=== PATIENT | female | born 1980 | race Caucasian/White ===

== ENCOUNTER 2019-12-07 19:02 | Emergency (ER) | payer OTHER ==
[~2019-12-07] VITALS: Ht 167.6 cm; Wt 136.1 kg
[2019-12-07 19:32] VITALS: BP 142/75
--- NOTE | 2019-12-07 19:38 | NUR ---
39 Y/O FEMALE BIBA BLS C/O LRQ ABD PAIN X 2 DAYS THAT IS NON RADIATING/; PAIN IS 9/10 AND FEELS BURNING/STABBING; PT TOOK NORCO 3 HRS AGO WITH NO RELIEF; DENIES N/V/D; SKIN IS PINK/WARM/DRY; AAOX4 WITH EVEN AND STEADY GAIT; HR EVEN AND REGULAR; PT DENIES ANY FEVER, CP, SOB, OR COUGH AT THIS TIME; VSS; PATIENT POSITIONED FOR COMFORT; HOB ELEVATED; BEDRAILS UP X2; BED DOWN AND LOCKED PMH: ASTHMA/HTN/PANCREATITS/GALLBLADDER REMOVED/SCIATIC PAIN/NERVE DAMAGE RIGHT LEG/SLIPPED DISC X 4 ALLERGY: PCN/BACTRIM
[2019-12-07] MEDS ORDERED: NACL 0.9% 1,000 ML IV SCH (20:08)
[2019-12-07] MEDS ORDERED: MORPHINE SULFATE 4 MG/ML SYR IVP ONE (20:10)
[2019-12-07] MEDS ORDERED: ONDANSETRON 4 MG/2 ML VIAL IVP ONE (20:10)
[2019-12-07 20:38] LABS: APPEARANCE,URINE CLEAR (CLEAR); BILIRUBIN,URINE NEGATIVE (NEGATIVE); BLOOD, URINE NEGATIVE (NEGATIVE); COLOR,URINE YELLOW (YELLOW); LEUKOCYTE ESTERASE ,URINE 1+ (NEGATIVE); NITRITE, URINE NEGATIVE (NEGATIVE); UGLUCOSE NEGATIVE (NEGATIVE)
[2019-12-07 20:43] LABS: BASOPHILS # (AUTO) 0.1 K/uL (0.00-0.22); EOSINOPHILS # (AUTO) 0.3 K/uL (0-0.4); EOSINOPHILS % (AUTO) 5.3 % (0.0-4.0); HEMATOCRIT 27.3 % (36-48); HEMOGLOBIN 8.3 g/dL (12.0-16.0); LYMPHOCYTES # (AUTO) 1.7 K/uL (2.5-16.5); MEAN CORPUSCULAR HEMOGLOBIN 20 pg (27-31); MEAN CORPUSCULAR HGB CONC 30 g/dL (33-37); MONOCYTES # (AUTO) 0.3 K/uL (0.8-1.0); MONOCYTES % (AUTO) 4.4 % (1.7-9.3); NEUTROPHILS % (AUTO) 62.3 % (42.2-75.2); PLATELET COUNT (AUTO) 291 K/uL (140-450); RED BLOOD CELL COUNT(AUTO) 4.27 MIL/uL (4.20-5.40); RED CELL DISTRIBUTION WIDTH 18.9 % (11.6-13.7); WHITE BLOOD COUNT (AUTO) 6.4 K/uL (4.8-10.8)
[2019-12-07 20:53] LABS: CARBON DIOXIDE 27.8 mmol/L (21-32); CREATININE 0.8 mg/dL (0.6-1.3); POTASSIUM 3.8 mmol/L (3.5-5.1); TOTAL BILIRUBIN 0.3 mg/dL (0.0-1.0)
[2019-12-07 21:14] LABS: RBC,URINE 0-5 /HPF (0-5)
--- NOTE | 2019-12-07 21:18 | NUR ---
PT RETURNED FROM CT
[2019-12-07 22:30] VITALS: BP 142/75
--- NOTE | 2019-12-07 22:30 | NUR ---
Patient discharged with v/s stable. Written and verbal after care instructions given and explained. Patient alert, oriented and verbalized understanding of instructions. Ambulatory with steady gait. All questions addressed prior to discharge. ID band removed. Patient advised to follow up with PMD. Rx of CIPRO/NORCO/MOTRIN/ZOFRAN given. Patient educated on indication of medication including possible reaction and side effects. Opportunity to ask questions provided and answered.
== END 2019-12-07 22:30 | disposition home or self-care (01) ==
LOC: MED 19:02
DX: N39.0 Urinary tract infection, site not specified (principal); K42.9 Umbilical hernia without obstruction or gangrene; J45.909 Unspecified asthma, uncomplicated; I10 Essential (primary) hypertension; Z90.49 Acquired absence of other specified parts of digestive tract; Z88.0 Allergy status to penicillin; Z88.1 Allergy status to other antibiotic agents; Z88.2 Allergy status to sulfonamides
CPT/HCPCS: 36415; 74176; 80053; 81001; 81025; 83690; 85025; 87086; 96361; 96374; 96375; 99284; J2270; J2405; J7030

== ENCOUNTER 2020-07-10 13:01 | Emergency (ER) | payer OTHER ==
[~2020-07-10] VITALS: Ht 170.2 cm; Wt 140.6 kg
--- NOTE | 2020-07-10 13:05 | NUR ---
BIBA TAKEN TO BED 6
[2020-07-10 13:17] VITALS: BP 130/63
[2020-07-10] MEDS ORDERED: ONDANSETRON 4 MG ODT PO ONE (13:45)
[2020-07-10] MEDS ORDERED: MORPHINE SULFATE 5 MG/ML VIAL IM ONE (13:45)
--- NOTE | 2020-07-10 13:50 | NUR ---
39 Y/O FEMALE BIBA FROM HOME FOR BACK PAIN/DIFFICULTY BREATHING X 4 DAYS. PT STATES SHE WAS DIAGNOSED WITH PNA AND STREP THROAT 4 DAYS AGO. BREATHING APPEARS LABORED, SPO2 99% RA, SYMMETRICAL CHEST EXPANSION, CLEAR LUNG SOUNDS THROUGHOUT. PT STATES PAIN UPON INSPIRATION. PAIN FELT UPPER/MID BACK, 8/10, CONTINUOUS. PT DENIES COUGH BUT STATES PRESENCE OF GREEN/JOSE DAVID SPUTUM. AO4, SKIN WARM AND DRY. BED IN LOWEST POSITION, LOCKED, X1 SIDERAIL UP. PMH - CHOLECYSTECTOMY, PANCREATITIS, STOMACH CYST ALLERGY - BACTRIM, PENICILLIN
--- NOTE | 2020-07-10 13:57 | NUR ---
MARIS COVID SWAB OBTAINED AND GIVEN TO LAB
[2020-07-10 14:36] LABS: ALBUMIN 3.1 g/dL (3.4-5.0); CARBON DIOXIDE 27.1 mmol/L (21-32); CREATININE 0.7 mg/dL (0.6-1.3); POTASSIUM 4.1 mmol/L (3.5-5.1); TOTAL BILIRUBIN 0.4 mg/dL (0.0-1.0)
[2020-07-10 14:47] LABS: BASOPHILS % (AUTO) 0.4 % (0.0-2.0); EOSINOPHILS # (AUTO) 0.3 K/uL (0-0.4); EOSINOPHILS % (AUTO) 3.9 % (0.0-4.0); HEMATOCRIT 29.3 % (36-48); HEMOGLOBIN 8.9 g/dL (12.0-16.0); LYMPHOCYTES # (AUTO) 1.8 K/uL (2.5-16.5); LYMPHOCYTES % (AUTO) 19.9 % (20.5-51.1); MEAN CORPUSCULAR HEMOGLOBIN 19 pg (27-31); MEAN CORPUSCULAR HGB CONC 31 g/dL (33-37); MEAN CORPUSCULAR VOLUME 61.5 fL (80-94); MONOCYTES # (AUTO) 0.3 K/uL (0.8-1.0); MONOCYTES % (AUTO) 3.8 % (1.7-9.3); NEUTROPHILS # (AUTO) 6.4 K/uL (1.8-7.7); PLATELET COUNT (AUTO) 321 K/uL (140-450); RED BLOOD CELL COUNT(AUTO) 4.76 MIL/uL (4.20-5.40); RED CELL DISTRIBUTION WIDTH 19.1 % (11.6-13.7); WHITE BLOOD COUNT (AUTO) 8.9 K/uL (4.8-10.8)
--- NOTE | 2020-07-10 15:03 | NUR ---
PT VERBALIZED DESIRE TO OPT OF CT ANGIO OF CHEST DUE TO MULTIPLE CT SCANS WITHIN THE LAST 5 MONTHS. SAID INFORMED AND STATES OKAT TO D/C CT ANGIO OF CHEST.
[2020-07-10] MEDS ORDERED: IBUP-2213 PO (15:17)
[2020-07-10 15:27] VITALS: BP 130/63
--- NOTE | 2020-07-10 15:27 | NUR ---
Patient discharged with v/s stable. Written and verbal after care instructions ABOUT CHEST WALL PAIN given and explained. Patient alert, oriented and verbalized understanding of instructions. Ambulatory with steady gait. All questions addressed prior to discharge. ID band removed. Patient advised to follow up with PMD. Rx of ACETAMINOPHEN given. Patient educated on indication of medication including possible reaction and side effects. Opportunity to ask questions provided and answered.
== END 2020-07-10 15:27 | disposition home or self-care (01) ==
LOC: MED 13:01
DX: R07.9 Chest pain, unspecified (principal); R05 Cough; M54.9 Dorsalgia, unspecified; D64.9 Anemia, unspecified; Z20.822 Contact with and (suspected) exposure to COVID-19
CPT/HCPCS: 36415; 71045; 80053; 81025; 84484; 84702; 85025; 87426; 93005; 96372; 99285; J2270; Q0162

== ENCOUNTER 2020-11-16 02:21 | Emergency (ER) | payer OTHER ==
[~2020-11-16] VITALS: Ht 167.6 cm; Wt 142.9 kg
[~2020-11-16 02:21] MED LIST: IBUP-2213 PO
[2020-11-16 02:26] VITALS: BP 142/81
--- NOTE | 2020-11-16 02:33 | NUR ---
PATIENT TO BED 7 AMBULATORY
[2020-11-16] MEDS ORDERED: FURO-572 PO (03:45)
[2020-11-16 03:56] VITALS: BP 142/81
--- NOTE | 2020-11-16 03:56 | NUR ---
Patient discharged with v/s stable. Written and verbal after care instructions given and explained. Patient alert, oriented and verbalized understanding of instructions. Ambulatory with steady gait. All questions addressed prior to discharge. ID band removed. Patient advised to follow up with PMD. Rx of lasix given. Patient educated on indication of medication including possible reaction and side effects. Opportunity to ask questions provided and answered.
== END 2020-11-16 03:56 | disposition home or self-care (01) ==
LOC: MED 02:21
DX: R60.0 Localized edema (principal)
CPT/HCPCS: 93971; 99284

== ENCOUNTER 2020-12-23 05:48 | Emergency (ER) | payer OTHER, SELFPAY ==
[~2020-12-23] VITALS: Ht 170.2 cm; Wt 145.1 kg
[2020-12-23 05:48] VITALS: BP 173/74
[~2020-12-23 05:48] MED LIST changes: +FURO-572 PO
--- NOTE | 2020-12-23 06:30 | NUR ---
CASI FROM HOME 40 Y.O. C/O SOB. PATIENT HAS A RESPIRATORY INFECTION THAT WAS FOUND 9 DAYS AGO. PATIENT NEGATIVE OF COVID. HAS NAUSEA AND SOME VOMITING. DENIES FEVER. PER EMS 88% SATURATION INITIALLY AND GAVE DUO-NEB WITH 10L OF O2 AND PATIENT ON 96% O2 SATURATION. EKG NS. PATIENT HAS ALBUTEROL BUT DID NOT TAKE THE MEDICATION. PATIENT GCS 15. PMH: PANCREATITIS, ANXIETY, ASTHMA ALLERGIES: PENICILLINS AND BACTRIM
--- NOTE | 2020-12-23 07:00 | NUR ---
MAIL SUPERINTENDENT AT BEDSIDE
[2020-12-23] MEDS: KETOROLAC 30 MG/ML VIAL IVP ONE (07:05)
--- NOTE | 2020-12-23 07:05 | NUR ---
XRAY AT BEDSIDE
[2020-12-23 07:16] LABS: BASOPHILS % (AUTO) 0.4 % (0.0-2.0); EOSINOPHILS # (AUTO) 0.1 K/uL (0-0.4); EOSINOPHILS % (AUTO) 1.2 % (0.0-4.0); HEMATOCRIT 28.3 % (36-48); HEMOGLOBIN 8.6 g/dL (12.0-16.0); LYMPHOCYTES # (AUTO) 1.2 K/uL (2.5-16.5); LYMPHOCYTES % (AUTO) 18.8 % (20.5-51.1); MEAN CORPUSCULAR HEMOGLOBIN 20 pg (27-31); MEAN CORPUSCULAR HGB CONC 30 g/dL (33-37); MEAN CORPUSCULAR VOLUME 64.7 fL (80-94); MONOCYTES # (AUTO) 0.4 K/uL (0.8-1.0); MONOCYTES % (AUTO) 5.4 % (1.7-9.3); NEUTROPHILS # (AUTO) 4.9 K/uL (1.8-7.7); NEUTROPHILS % (AUTO) 74.2 % (42.2-75.2); PLATELET COUNT (AUTO) 289 K/uL (140-450); RED BLOOD CELL COUNT(AUTO) 4.38 MIL/uL (4.20-5.40); RED CELL DISTRIBUTION WIDTH 18.9 % (11.6-13.7); WHITE BLOOD COUNT (AUTO) 6.6 K/uL (4.8-10.8)
--- NOTE | 2020-12-23 07:19 | NUR ---
REPORT RECEIVED FROM LA TORRES. KENNETH OF CARE RECEIVED
--- NOTE | 2020-12-23 07:22 | NUR ---
GIVEN REPORT TO LA RODAS. TRANSFER OF CARE AT THIS TIME
[2020-12-23 07:25] LABS: ALBUMIN 2.7 g/dL (3.4-5.0); ANION GAP 12.8 (8-16); CARBON DIOXIDE 27.9 mmol/L (21-32); CREATININE 0.8 mg/dL (0.6-1.3); POTASSIUM 3.7 mmol/L (3.5-5.1); TOTAL BILIRUBIN 0.6 mg/dL (0.0-1.0)
--- NOTE | 2020-12-23 07:35 | NUR ---
navid murillo collected and walked over to lab
[2020-12-23] MEDS ORDERED: IBUP-2213 PO (08:01)
[2020-12-23] MEDS: ONDANSETRON 4 MG/2 ML VIAL IVP ONE (08:01)
[2020-12-23] MEDS ORDERED: ONDA8TAB87 PO (08:01)
[2020-12-23 08:23] VITALS: BP 136/71
--- NOTE | 2020-12-23 08:24 | NUR ---
Patient discharged with v/s stable. Written and verbal after care instructions given and explained. Patient alert, oriented and verbalized understanding of instructions. Ambulatory with steady gait. All questions addressed prior to discharge. ID band removed. Patient advised to follow up with PMD. Rx of zofran and ibuprofen given. Patient educated on indication of medication including possible reaction and side effects. Opportunity to ask questions provided and answered.
--- NOTE | 2020-12-25 14:46 | NUR ---
LATE ENTRY----LAB CALLED WITH + COVID RESULTS.
== END 2020-12-23 08:24 | disposition home or self-care (01) ==
LOC: MED 05:48
DX: U07.1 COVID-19 (principal); J45.909 Unspecified asthma, uncomplicated; I10 Essential (primary) hypertension; Z88.0 Allergy status to penicillin; Z88.2 Allergy status to sulfonamides; Z88.8 Allergy status to other drugs, medicaments and biological substances
CPT/HCPCS: 36415; 71045; 80053; 85025; 93005; 96374; 96375; 99285; J1885; J2405; U0003

== ENCOUNTER 2021-06-01 21:43 | Emergency (ER) | payer OTHER, SELFPAY ==
[~2021-06-01] VITALS: Ht 167.6 cm; Wt 154.2 kg
[~2021-06-01 21:43] MED LIST changes: +ONDA8TAB87 PO
--- NOTE | 2021-06-01 21:46 | NUR ---
PT TAKEN TO BED #4
[2021-06-01 21:47] VITALS: BP 136/74
--- NOTE | 2021-06-01 22:09 | NUR ---
DR. CARNEY AT BEDSIDE
--- NOTE | 2021-06-01 22:16 | NUR ---
PT AMBULATED TO BATHROOM .SHE STATES SHE FELT PRESSURE.
[2021-06-01] MEDS ORDERED: MAGNESIUM CITRATE 300 ML BTL PO ONE (22:30)
[2021-06-01] MEDS ORDERED: MAGN400S60 PO (22:42)
[2021-06-01 22:45] VITALS: BP 137/74
--- NOTE | 2021-06-01 22:45 | NUR ---
Patient discharged with v/s stable. Written and verbal after care instructions given and explained. Patient alert, oriented and verbalized understanding of instructions. Ambulatory with steady gait. All questions addressed prior to discharge. ID band removed. Patient advised to follow up with PMD. Rx of MILK OF MAGNESIA given. Opportunity to ask questions provided and answered.
--- NOTE | 2021-06-01 22:58 | NUR ---
The patient's care was reviewed and supervised by Nunu Crocker RN.
== END 2021-06-01 22:47 | disposition home or self-care (01) ==
LOC: MED 21:43
DX: K59.00 Constipation, unspecified (principal); K92.1 Melena; J45.909 Unspecified asthma, uncomplicated; I10 Essential (primary) hypertension; Z79.899 Other long term (current) drug therapy; Z88.0 Allergy status to penicillin; Z88.1 Allergy status to other antibiotic agents; Z88.2 Allergy status to sulfonamides
CPT/HCPCS: 99282

== ENCOUNTER 2022-01-17 01:34 | Emergency (ER) | payer OTHER ==
[~2022-01-17] VITALS: Ht 165.1 cm; Wt 163.3 kg
[~2022-01-17 01:34] MED LIST changes: +MAGN400S60 PO
[2022-01-17 01:41] VITALS: BP 171/117
[2022-01-17] MEDS ORDERED: MORPHINE SULFATE 2 MG/ML SYR IVP ONE (01:50)
[2022-01-17] MEDS ORDERED: ONDANSETRON 4 MG/2 ML VIAL IVP ONE (01:50)
[2022-01-17] MEDS ORDERED: NACL 0.9% 1,000 ML IV SCH (01:50)
--- NOTE | 2022-01-17 01:56 | NUR ---
PATIENT AMBULATED TO BED 5
--- NOTE | 2022-01-17 02:03 | NUR ---
LAB AT BEDSIDE
--- NOTE | 2022-01-17 02:04 | NUR ---
URINE COLLECTED AND HANDED TO LAB
[2022-01-17 02:09] LABS: APPEARANCE,URINE CLEAR (CLEAR); BILIRUBIN,URINE NEGATIVE (NEGATIVE); BLOOD, URINE NEGATIVE (NEGATIVE); COLOR,URINE YELLOW (YELLOW); LEUKOCYTE ESTERASE ,URINE 1+ (NEGATIVE); NITRITE, URINE NEGATIVE (NEGATIVE); UGLUCOSE NEGATIVE (NEGATIVE)
[2022-01-17 02:17] LABS: RBC,URINE 0-5 /HPF (0-5)
[2022-01-17 02:27] LABS: ANION GAP 15.5 (8-16); CARBON DIOXIDE 23.3 mmol/L (21-32); CREATININE 0.7 mg/dL (0.6-1.3); POTASSIUM 3.8 mmol/L (3.5-5.1); TOTAL BILIRUBIN 0.4 mg/dL (0.0-1.0)
[2022-01-17 02:50] LABS: BASOPHILS # (AUTO) 0.1 K/uL (0.00-0.22); BASOPHILS % (AUTO) 0.7 % (0.0-2.0); EOSINOPHILS # (AUTO) 0.5 K/uL (0-0.4); HEMATOCRIT 34.3 % (36-48); HEMOGLOBIN 10.7 g/dL (12.0-16.0); LYMPHOCYTES # (AUTO) 2.5 K/uL (2.5-16.5); LYMPHOCYTES % (AUTO) 26.7 % (20.5-51.1); MEAN CORPUSCULAR HEMOGLOBIN 22 pg (27-31); MEAN CORPUSCULAR HGB CONC 31 g/dL (33-37); MONOCYTES # (AUTO) 0.5 K/uL (0.8-1.0); NEUTROPHILS # (AUTO) 5.8 K/uL (1.8-7.7); NEUTROPHILS % (AUTO) 62.6 % (42.2-75.2); PLATELET COUNT (AUTO) 291 K/uL (140-450); RED CELL DISTRIBUTION WIDTH 18.9 % (11.6-13.7); WHITE BLOOD COUNT (AUTO) 9.3 K/uL (4.8-10.8)
[2022-01-17] MEDS ORDERED: KETOROLAC 30 MG/ML VIAL IVP ONE (04:30)
[2022-01-17] MEDS ORDERED: CEPH-588 PO (05:38)
[2022-01-17] MEDS ORDERED: cefTRIAXone 2,000 MG in DEXTROSE 5% 100 ML IV ONE (05:40)
[2022-01-17] MEDS ORDERED: cefTRIAXone 2,000 MG VIAL ONE (06:09)
--- NOTE | 2022-01-17 07:24 | NUR ---
Report recieved from [facility] for trasnfer of care.
[2022-01-17 07:56] VITALS: BP 121/59
--- NOTE | 2022-01-17 07:56 | NUR ---
Patient discharged with v/s stable. Written and verbal after care instructions given. Patient alert, oriented and verbalized understanding of instructions. Ambulatory with steady gait. All questions addressed prior to discharge. ID band removed. Patient advised to follow up with PMD. Rx of Keflex given. Opportunity to ask questions provided and answered.
== END 2022-01-17 07:56 | disposition home or self-care (01) ==
LOC: MED 01:34
DX: N39.0 Urinary tract infection, site not specified (principal); J45.909 Unspecified asthma, uncomplicated; I10 Essential (primary) hypertension; Z88.0 Allergy status to penicillin; Z88.2 Allergy status to sulfonamides; Z88.8 Allergy status to other drugs, medicaments and biological substances; Z79.899 Other long term (current) drug therapy
CPT/HCPCS: 36415; 74177; 80053; 81001; 84702; 85025; 87086; 96361; 96365; 96375; 99285; J0696; J1885; J2270; J2405; J7030; Q9967

== ENCOUNTER 2022-08-23 09:01 | Emergency (ER) | payer OTHER ==
[~2022-08-23] VITALS: Ht 167.6 cm; Wt 117.9 kg
[~2022-08-23 09:01] MED LIST changes: +CEPH-588 PO
[2022-08-23 09:14] VITALS: BP 152/94
--- NOTE | 2022-08-23 10:10 | NUR ---
DR ARITA AT BEDSIDE.
[2022-08-23] MEDS ORDERED: MORPHINE SULFATE 4 MG/ML SYR IVP ONE ×2 (10:15→11:35)
[2022-08-23] MEDS ORDERED: ONDANSETRON 4 MG/2 ML VIAL IVP ONE (10:15)
[2022-08-23] MEDS ORDERED: NACL 0.9% 1,000 ML IV SCH (10:15)
[2022-08-23 10:41] LABS: APPEARANCE,URINE CLEAR (CLEAR); BILIRUBIN,URINE NEGATIVE (NEGATIVE); BLOOD, URINE NEGATIVE (NEGATIVE); COLOR,URINE YELLOW (YELLOW); LEUKOCYTE ESTERASE ,URINE NEGATIVE (NEGATIVE); NITRITE, URINE NEGATIVE (NEGATIVE); UGLUCOSE NEGATIVE (NEGATIVE)
[2022-08-23 10:43] LABS: BASOPHILS # (AUTO) 0.1 K/uL (0.00-0.22); BASOPHILS % (AUTO) 1.2 % (0.0-2.0); EOSINOPHILS # (AUTO) 0.3 K/uL (0-0.4); EOSINOPHILS % (AUTO) 4.5 % (0.0-4.0); HEMATOCRIT 33.8 % (36-48); HEMOGLOBIN 10.8 g/dL (12.0-16.0); LYMPHOCYTES # (AUTO) 1.7 K/uL (2.5-16.5); LYMPHOCYTES % (AUTO) 24.8 % (20.5-51.1); MEAN CORPUSCULAR HEMOGLOBIN 23 pg (27-31); MEAN CORPUSCULAR HGB CONC 32 g/dL (33-37); MEAN CORPUSCULAR VOLUME 71.3 fL (80-94); MONOCYTES # (AUTO) 0.4 K/uL (0.8-1.0); NEUTROPHILS # (AUTO) 4.5 K/uL (1.8-7.7); NEUTROPHILS % (AUTO) 63.5 % (42.2-75.2); PLATELET COUNT (AUTO) 269 K/uL (140-450); RED BLOOD CELL COUNT(AUTO) 4.74 MIL/uL (4.20-5.40); RED CELL DISTRIBUTION WIDTH 16.7 % (11.6-13.7)
--- NOTE | 2022-08-23 10:50 | NUR ---
PATIENT TO CT
[2022-08-23 10:54] LABS: ALBUMIN 3.1 g/dL (3.4-5.0); ANION GAP 10.4 (8-16); CARBON DIOXIDE 29.9 mmol/L (21-32); CREATININE 0.8 mg/dL (0.6-1.3); POTASSIUM 4.3 mmol/L (3.5-5.1); TOTAL BILIRUBIN 0.4 mg/dL (0.0-1.0)
[2022-08-23] MEDS ORDERED: ACET-8905 PO (11:44)
[2022-08-23] MEDS ORDERED: ONDA8TAB87 PO (11:44)
[2022-08-23] MEDS ORDERED: IBUP-2213 PO (11:44)
[2022-08-23] MEDS ORDERED: OMEP40EC24 PO (11:44)
--- NOTE | 2022-08-23 11:59 | NUR ---
Patient discharged with v/s stable. Written and verbal after care instructions given and explained. Patient verbalized understanding. Ambulatory with steady gait. All questions addressed prior to discharge. Advised to follow up with PMD.
== END 2022-08-23 11:58 | disposition home or self-care (01) ==
LOC: MED 09:01
DX: R10.13 Epigastric pain (principal); R10.31 Right lower quadrant pain; R11.0 Nausea; J45.909 Unspecified asthma, uncomplicated; I10 Essential (primary) hypertension; Z90.49 Acquired absence of other specified parts of digestive tract; Z98.890 Other specified postprocedural states; Z79.899 Other long term (current) drug therapy; Z79.1 Long term (current) use of non-steroidal anti-inflammatories (NSAID); Z79.2 Long term (current) use of antibiotics; Z88.0 Allergy status to penicillin; Z88.1 Allergy status to other antibiotic agents; Z88.2 Allergy status to sulfonamides
CPT/HCPCS: 36415; 74176; 80053; 81003; 81025; 83690; 85025; 96361; 96374; 96375; 96376; 99285; J2270; J2405; J7030

== ENCOUNTER 2023-04-15 04:20 | Emergency (ER) | payer OTHER ==
[~2023-04-15] VITALS: Ht 165.1 cm; Wt 135.2 kg
[~2023-04-15 04:20] MED LIST changes: +ACET-8905 PO; +OMEP40EC24 PO
[2023-04-15 04:23] VITALS: BP 144/79; PULSE 80; RESP 18; TEMP 98; O2SAT 96
[2023-04-15 05:16] VITALS: BP 144/79; PULSE 75; RESP 17; TEMP 98; O2SAT 98
[2023-04-15] MEDS ORDERED: MORPHINE SULFATE 4 MG/ML SYR IM ONE (05:50)
[2023-04-15] MEDS ORDERED: ONDANSETRON 4 MG ODT PO ONE (05:50)
[2023-04-15 06:06] LABS: APPEARANCE,URINE CLEAR (CLEAR); BILIRUBIN,URINE 1+ (NEGATIVE); BLOOD, URINE NEGATIVE (NEGATIVE); COLOR,URINE YELLOW (YELLOW); LEUKOCYTE ESTERASE ,URINE TRACE (NEGATIVE); NITRITE, URINE NEGATIVE (NEGATIVE); PROTEIN,URINE NEGATIVE (NEGATIVE); UGLUCOSE NEGATIVE (NEGATIVE); UROBILINOGEN,URINE 0.2 EU/dL (0.2 - 1)
[2023-04-15 06:12] LABS: ICTOTEST NEGATIVE (NEGATIVE)
[2023-04-15 06:14] LABS: BACTERIA,URINE FEW /HPF (None Seen); RBC,URINE 0-5 /HPF (0-5); WBC,URINE 0-5 /HPF (0-5)
[2023-04-15 06:15] LABS: SQUAMOUS EPITHELIAL CELL,UR 4-10 (MOD) /LPF (0-3 (FEW))
[2023-04-15 06:27] LABS: BASOPHILS # (AUTO) 0.1 K/uL (0.00-0.22); BASOPHILS % (AUTO) 1.1 % (0.0-2.0); EOSINOPHILS # (AUTO) 0.3 K/uL (0-0.4); EOSINOPHILS % (AUTO) 3.9 % (0.0-4.0); HEMATOCRIT 35.5 % (36-48); HEMOGLOBIN 11.5 g/dL (12.0-16.0); LYMPHOCYTES # (AUTO) 1.7 K/uL (2.5-16.5); LYMPHOCYTES % (AUTO) 22.8 % (20.5-51.1); MEAN CORPUSCULAR HEMOGLOBIN 24 pg (27-31); MEAN CORPUSCULAR HGB CONC 32 g/dL (33-37); MEAN CORPUSCULAR VOLUME 74.9 fL (80-94); MONOCYTES # (AUTO) 0.4 K/uL (0.8-1.0); MONOCYTES % (AUTO) 5.4 % (1.7-9.3); NEUTROPHILS # (AUTO) 4.9 K/uL (1.8-7.7); NEUTROPHILS % (AUTO) 66.8 % (42.2-75.2); PLATELET COUNT (AUTO) 300 K/uL (140-450); RED BLOOD CELL COUNT(AUTO) 4.74 MIL/uL (4.20-5.40); RED CELL DISTRIBUTION WIDTH 17.4 % (11.6-13.7); WHITE BLOOD COUNT (AUTO) 7.3 K/uL (4.8-10.8)
[2023-04-15] MEDS ORDERED: NACL 0.9% 1,000 ML IV ONE (06:30)
[2023-04-15] MEDS ORDERED: ONDANSETRON 4 MG/2 ML VIAL IVP ONE (06:30)
[2023-04-15] MEDS ORDERED: MORPHINE SULFATE 4 MG/ML SYR IVP ONE (06:30)
[2023-04-15 06:35] LABS: CALCIUM 8.6 mg/dL (8.5-10.1); CARBON DIOXIDE 26.7 mmol/L (21-32); CREATININE 0.8 mg/dL (0.6-1.3); POTASSIUM 3.7 mmol/L (3.5-5.1)
[2023-04-15 06:39] LABS: ALBUMIN 2.8 g/dL (3.4-5.0); BILIRUBIN,DIRECT 0.1 mg/dL (0.0-0.3); TOTAL BILIRUBIN 0.5 mg/dL (0.0-1.0); TOTAL PROTEIN, SERUM 7.3 g/dL (6.4-8.2)
[2023-04-16] MEDS ORDERED: CIPR500T4 PO (05:06)
[2023-04-16] MEDS ORDERED: METR-435 PO (05:06)
[2023-04-16] MEDS ORDERED: BEN10 PO (05:06)
[2023-04-16] MEDS ORDERED: NAPR-54 PO (05:06)
== END 2023-04-15 07:35 | disposition left against medical advice (07) ==
LOC: MED 04:20
DX: S30.1XXA Contusion of abdominal wall, initial encounter (principal); D64.9 Anemia, unspecified; K76.9 Liver disease, unspecified; Z88.0 Allergy status to penicillin; Z88.8 Allergy status to other drugs, medicaments and biological substances; Z79.899 Other long term (current) drug therapy; W18.30XA Fall on same level, unspecified, initial encounter; Y93.89 Activity, other specified; Y92.89 Other specified places as the place of occurrence of the external cause; Y99.8 Other external cause status
CPT/HCPCS: 36415; 74177; 80048; 80076; 81001; 81025; 83690; 85025; 96361; 96372; 96374; 96375; 99285; J2270; J2405; Q0162; Q9967; J7030

== ENCOUNTER 2023-04-16 04:35 | Emergency (ER) | payer OTHER ==
[~2023-04-16] VITALS: Ht 165.1 cm; Wt 131.5 kg
[2023-04-16 04:40] VITALS: BP 142/79; PULSE 88; RESP 16; TEMP 97.6; O2SAT 100
[2023-04-16] MEDS ORDERED: KETOROLAC 30 MG/ML VIAL IM ONE (05:00)
[2023-04-16] MEDS ORDERED: DICYCLOMINE 20 MG/2 ML VIAL IM ONE (05:00)
[2023-04-16] MEDS ORDERED: BEN10 PO (05:06)
[2023-04-16] MEDS ORDERED: CIPR500T4 PO (05:06)
[2023-04-16] MEDS ORDERED: METR-435 PO (05:06)
[2023-04-16] MEDS ORDERED: NAPR-54 PO (05:06)
[2023-04-16 05:45] VITALS: BP 142/79; PULSE 88; RESP 16; TEMP 97.6; O2SAT 100
== END 2023-04-16 05:43 | disposition home or self-care (01) ==
LOC: MED 04:35
DX: K52.9 Noninfective gastroenteritis and colitis, unspecified (principal); N80.9 Endometriosis, unspecified; K57.92 Diverticulitis of intestine, part unspecified, without perforation or abscess without bleeding; K76.0 Fatty (change of) liver, not elsewhere classified; Z88.2 Allergy status to sulfonamides; Z88.8 Allergy status to other drugs, medicaments and biological substances; Z79.899 Other long term (current) drug therapy; Z88.0 Allergy status to penicillin
CPT/HCPCS: 96372; 99284; J0500; J1885

== ENCOUNTER 2023-05-22 06:00 | Emergency (ER) | payer OTHER ==
[~2023-05-22] VITALS: Ht 165.1 cm; Wt 129.3 kg
[~2023-05-22 06:00] MED LIST changes: +BEN10 PO; +CIPR500T4 PO; +METR-435 PO; +NAPR-54 PO
[2023-05-22 06:54] VITALS: BP 118/71; PULSE 74; RESP 18; TEMP 98.7; O2SAT 100
[2023-05-22] MEDS ORDERED: KETOROLAC 60 MG/2 ML VIAL IM ONE (07:40)
[2023-05-22] MEDS ORDERED: IBUP-2218 PO (10:40)
== END 2023-05-22 11:40 | disposition home or self-care (01) ==
LOC: MED 06:00
DX: S90.32XA Contusion of left foot, initial encounter (principal); S90.31XA Contusion of right foot, initial encounter; J45.909 Unspecified asthma, uncomplicated; I10 Essential (primary) hypertension; Z79.899 Other long term (current) drug therapy; Z79.1 Long term (current) use of non-steroidal anti-inflammatories (NSAID); Z79.2 Long term (current) use of antibiotics; Z88.0 Allergy status to penicillin; Z88.2 Allergy status to sulfonamides; Z88.8 Allergy status to other drugs, medicaments and biological substances; X58.XXXA Exposure to other specified factors, initial encounter; Y92.89 Other specified places as the place of occurrence of the external cause; Y93.89 Activity, other specified; Y99.8 Other external cause status
CPT/HCPCS: 73630; 96372; 99283; J1885

== ENCOUNTER 2023-10-25 10:40 | Emergency (ER) | payer OTHER ==
[~2023-10-25] VITALS: Ht 165.1 cm; Wt 127.0 kg
[~2023-10-25 10:40] MED LIST changes: +IBUP-2218 PO; +NAPR-337 PO; -NAPR-54 PO
[2023-10-25 10:56] VITALS: BP 154/88; PULSE 74; RESP 18; TEMP 97.4; O2SAT 95
[2023-10-25] MEDS: KETOROLAC 60 MG/2 ML VIAL IM ONE (12:45)
[2023-10-25] MEDS ORDERED: CYCL-711 PO (13:47)
[2023-10-25] MEDS ORDERED: DICL20GE TP (13:47)
[2023-10-25] MEDS ORDERED: ACET-10509 PO (13:47)
[2023-10-25 14:05] VITALS: BP 154/88; PULSE 74; RESP 18; TEMP 97.4; O2SAT 95
== END 2023-10-25 14:02 | disposition home or self-care (01) ==
LOC: MED 10:40
DX: S39.012A Strain of muscle, fascia and tendon of lower back, initial encounter (principal); S86.811A Strain of other muscle(s) and tendon(s) at lower leg level, right leg, initial encounter; J45.909 Unspecified asthma, uncomplicated; I10 Essential (primary) hypertension; Z79.1 Long term (current) use of non-steroidal anti-inflammatories (NSAID); Z79.2 Long term (current) use of antibiotics; Z79.899 Other long term (current) drug therapy; Z88.0 Allergy status to penicillin; Z88.2 Allergy status to sulfonamides; Z88.8 Allergy status to other drugs, medicaments and biological substances; W18.30XA Fall on same level, unspecified, initial encounter; Y93.89 Activity, other specified; Y92.89 Other specified places as the place of occurrence of the external cause; Y99.8 Other external cause status
CPT/HCPCS: 72100; 73552; 96372; 99284; J1885

== ENCOUNTER 2023-11-10 18:40 | Emergency (ER) | payer OTHER ==
[~2023-11-10] VITALS: Ht 198.1 cm; Wt 134.4 kg
[~2023-11-10 18:40] MED LIST changes: +ACET-10509 PO; +CYCL-711 PO; +DICL20GE TP
[2023-11-10 18:55] VITALS: BP 130/57; PULSE 73; RESP 17; TEMP 98.1; O2SAT 95
[2023-11-10] MEDS: KETOROLAC 30 MG/ML VIAL IM ONE (20:30)
[2023-11-10] MEDS: ACETAMINOPHEN EXTRA STRENGTH 500 MG TAB PO ONE (20:32)
[2023-11-10] MEDS ORDERED: DICL20GE TP (20:50)
[2023-11-10] MEDS ORDERED: IBUP-2213 PO (20:50)
[2023-11-10] MEDS ORDERED: ACET-10509 PO (20:50)
[2023-11-10 21:01] VITALS: BP 138/62; PULSE 64; RESP 13; TEMP 98.1; O2SAT 99
== END 2023-11-10 21:02 | disposition home or self-care (01) ==
LOC: MED 18:40
DX: R07.9 Chest pain, unspecified (principal); J45.909 Unspecified asthma, uncomplicated; I10 Essential (primary) hypertension; Z79.899 Other long term (current) drug therapy; Z88.0 Allergy status to penicillin; Z88.1 Allergy status to other antibiotic agents; Z88.2 Allergy status to sulfonamides
CPT/HCPCS: 71045; 81025; 93005; 96372; 99283; J1885; Q0092